=== PATIENT | female | born 2000 | race African-American/Black ===

== ENCOUNTER 2019-07-16 04:00 | Emergency (ER) | payer SELFPAY ==
[2019-07-16] MEDS ORDERED: ACETAMINOPHEN 325 MG TABLET PO ONE (04:24)
--- NOTE | 2019-07-16 09:33 | ER Document Report ---
ED ENT - General Chief Complaint: Ear Pain Stated Complaint: LEFT EAR SHITAL Time Seen by Provider: 07/16/19 08:45 Primary Care Provider: [facility] [Provider Group] - Follow up in 1 week DORIE SOLOMON MD [KATHI SANCHEZ] - Follow up as needed DELVIS CARRIZALES MD [KATHI SANCHEZ] - Follow up as needed YODIT SHEPHERD MD [NO LOCAL MD] - Follow up as needed ARIEL WHYTE MD [COMMUNITY BASED STAFF] - Follow up in 1 week Notes: 18-year-old female presents with left ear pain that started after she cleaned her ear out with a Q-tip and pushed hard yesterday. Patient states that her left ear feels muffled. Patient denies any other symptoms. Patient denies any fever, headache, nasal congestion, sore throat. TRAVEL OUTSIDE OF THE [place] IN LAST 30 DAYS: No - Related Data Allergies/Adverse Reactions: No Known Allergies Allergy (Unverified 07/16/19 04:19) Past Medical History - General Information source: Patient - Social History Smoking Status: Never Smoker Frequency of alcohol use: None Drug Abuse: None Family History: None Patient has suicidal ideation: No Patient has homicidal ideation: No Review of Systems - Review of Systems Notes: Constitutional: Negative for fever. HENT: Positive for left ear pain. Negative for sore throat. Eyes: Negative for visual changes. Cardiovascular: Negative for chest pain. Respiratory: Negative for shortness of breath. Gastrointestinal: Negative for abdominal pain, vomiting or diarrhea. Genitourinary: Negative for dysuria. Musculoskeletal: Negative for back pain. Skin: Negative for rash. Neurological: Negative for headaches, weakness or numbness. 10 point ROS negative except as marked above and in HPI. Physical Exam - Vital signs Vitals: Temp Pulse Resp BP Pulse Ox 97.4 F 83 16 118/86 H 98 07/16/19 04:12 07/16/19 04:12 07/16/19 04:12 07/16/19 04:12 07/16/19 04:12 - Notes Notes: GENERAL: Well-appearing, well-nourished and in no acute distress. HEAD: Atraumatic, normocephalic. EYES: Extraocular movements intact, sclera anicteric, conjunctiva are normal. ENT: Left TM appears perforated, bilateral EACs nonerythematous, right TM normal, nares patent, oropharynx clear without exudates. Moist mucous membranes. NECK: Normal range of motion, supple without lymphadenopathy or JVD. EXTREMITIES: Normal range of motion, no pitting or edema. No clubbing or cyanosis. NEUROLOGICAL: Cranial nerves II through XII grossly intact. Normal speech, normal gait. PSYCH: Normal mood, normal affect. SKIN: Warm, Dry, normal turgor, no rashes or lesions noted. Course - Re-evaluation Re-evalutation: 07/16/19 Nontoxic, well appearing 18-year-old female presents with possible left TM perforation. Patient was using a Q-tip and accidentally pushed too hard. Patient instructed to not use Q-tips inside her ear anymore. Exam reveals possible left TM perforation. Up-to-date recommends Water precautions, antibiotic eardrops, reexamination by PCP in 4 weeks, and possible referral to ENT. Patient given prescription for eardrops and strict return precautions including water precautions. Patient given referral back to PCP/clinic and ENT. All questions/concerns addressed prior to discharge. Patient voices understanding and agrees with plan of care. - Vital Signs Vital signs: Temp Pulse Resp BP Pulse Ox 97.7 F 78 12 107/68 99 07/16/19 09:50 07/16/19 09:50 07/16/19 09:50 07/16/19 09:50 07/16/19 09:50 Discharge - Discharge Clinical Impression: Perforation of left tympanic membrane Condition: Stable Disposition: HOME, SELF-CARE Additional Instructions: Please keep water out of your left ear. Use earplugs when taking a shower. Please do not go into the pool at all. Please use ofloxacin otic drops 5 drops in left ear twice a day for 3 to 5 days. Please follow-up with your primary care doctor and ENT as referred in 1 to 2 weeks. Return immediately to ER if you start having any worsening symptoms, including worsening ear pain, worsening hearing loss, fever, headache, nausea/vomiting, abdominal pain, shortness of breath, or any other symptoms that are concerning to you. Prescriptions: Ibuprofen [Motrin 600 mg Tablet] 600 mg PO Q8HP PRN #30 tablet PRN Reason: Ofloxacin [Floxin 0.3% Otic Drops 5 ml] 5 drop OT TID #1 bottle Forms: Return to Work Referrals: DELVIS CARRIZALES MD [KATHI SANCHEZ] - Follow up as needed DORIE SOLOMON MD [KATHI SANCHEZ] - Follow up as needed YODIT SHEPHERD MD [NO LOCAL MD] - Follow up as needed ARIEL WHYTE MD [COMMUNITY BASED STAFF] - Follow up in 1 week [facility] [Provider Group] - Follow up in 1 week
[2019-07-16 09:51] VITALS: BP 107/68
== END 2019-07-16 09:50 | disposition home or self-care (01) ==
LOC: ER 04:00
DX: H72.92 Unspecified perforation of tympanic membrane, left ear (principal); H92.02 Otalgia, left ear
CPT/HCPCS: 99282